=== PATIENT | female | born 1955 | race Caucasian/White ===

== ENCOUNTER 2016-10-28 09:45 | Inpatient (IN) ==
--- NOTE | 2016-10-27 21:31 | Discharge Summary ---
<Shannan Blanc Neelam - Last Filed: 10/27/16 21:28> Date of Encounter: 10/27/16 - Discharge Diagnosis (1) Arthritis of knee, right Priority: Primary Status: Acute (2) Chronic pain Priority: Secondary Status: Chronic Comments: Currently on Oxycodone 10mg q 6 hours, #120, LD 09/23/16. Will continue this medication with breakthrough pain medication. Qualifiers: Chronic pain type: other chronic pain Qualified Code(s): G89.29 - Other chronic pain (3) Lumbar stenosis Priority: Secondary Status: Chronic (4) Fibromyalgia Priority: Secondary Status: Chronic (5) Morbid obesity Priority: Secondary Status: Chronic Qualifiers: Obesity type: unspecified obesity type Qualified Code(s): E66.01 - Morbid ( severe) obesity due to excess calories - Discharge Medications Home Medications: Levothyroxine [Synthroid] 50 mcg PO DAILY 12/28/14 [History] Milk Thistle 1,000 mg PO DAILY 12/28/14 [History] Gabapentin [Neurontin] 600 mg PO TID 04/22/16 [History] Lisinopril/Hydrochlorothiazide [Zestoretic 20-25 mg Tablet] 1 each PO DAILY [History] Aspirin Enteric Coated [Aspirin EC] 325 mg PO DAILY #21 tablet. 10/27/16 [Rx] OxyCODONE Immed Rel [Roxicodone 5 MG] 5 mg PO Q8H PRN #21 tablet 10/27/16 [Rx] Liraglutide [Victoza 2-Arsenio] 1.8 mg SQ DAILY #0 10/28/16 [History] Oxycodone HCl 10 mg PO Q6HR PRN 10/28/16 [History] Allergies/Adverse Reactions: Allergies pregabalin [From Lyrica] Adverse Reaction (Verified 10/29/16 11:19) Nausea Primary care physician: Boris Cheney - Patient Status Disposition: Transfer Inpatient Rehab Fac Condition: Good - Discharge Instructions Follow Up With: Boris Cheney [Primary Care Provider] - - Hospital Course Hospital course: Ms. Campos is a 61 year old female - Time Spent with Patient Total time spent providing and/or coordinating discharge services: <Kasi Avila - Last Filed: 10/30/16 12:49> Date of Encounter: 10/30/16 Time of Encounter: 12:48 - Discharge Diagnosis (1) Lumbar stenosis Priority: Secondary Status: Chronic (2) Fibromyalgia Priority: Secondary Status: Chronic (3) Morbid obesity with BMI of 45.0-49.9, adult Priority: Secondary Status: Chronic (4) History of total knee replacement Priority: Secondary Status: Chronic Qualifiers: Laterality: left Qualified Code(s): Z96.652 - Presence of left artificial knee joint (5) Arthritis of knee, right Priority: Primary Status: Acute (6) Chronic pain Priority: Secondary Status: Chronic Qualifiers: Chronic pain type: other chronic pain Qualified Code(s): G89.29 - Other chronic pain Primary care physician: Boris Cheney - Patient Status Functional capacity at discharge: uses cane/walker Overall status at discharge: patient is progressing back to baseline - Hospital Course Hospital course: Ms. Campos is a 61 year old female The patient had an uneventful postoperative course. They received antibiotics and physical therapy and were discharged in stable condition. There will follow -up in the office in 2 weeks. Aspirin DVT prophylaxis - Time Spent with Patient Total time spent providing and/or coordinating discharge services:
[2016-10-28] MEDS ORDERED: CeFAZolin Pre 2,000 MG/100 ML 2,000 MG/100 ML BAG IVPB ONE (10:34)
--- NOTE | 2016-10-28 10:38 | History & Physical Report ---
Date of Encounter: 10/28/16 Time of Encounter: 10:38 24 Hour HP Update - Instructions Instructions: If the History and Physical is less than 30 days old and was completed prior to A.M. admission and or procedure and has NOT been updated on calendar day of procedure please complete this update prior to performing procedure. - Update Patient reports changes in Medical Condition: No Changes in examination, assessment, or condition: No Changes in Medication: No Preop tests/diagnostics Reviewed: Yes Surgery Remains Indicated: Yes Consent for Planned Operative Procedure(s) Verified: Yes - Pre-Operative Checklist Preoperative Checklist Indicated: No Prophylactic Antibiotic Ordered: Yes Is VTE Prophylaxis Indicated?: Yes
[2016-10-28] MEDS ORDERED: diazePAM 5 MG TABLET PO ONE (10:43)
[2016-10-28] MEDS ORDERED: Famotidine 20 MG/2 ML VIAL IVP ONE (10:43)
[2016-10-28] MEDS ORDERED: Gabapentin 300 MG CAPSULE PO ONE (10:43)
[2016-10-28] MEDS ORDERED: Ringers Solution, Lactated 1,000 ML IVC SCH (10:45)
[2016-10-28] MEDS ORDERED: Lidocaine -MPF 1% 2 ML VIAL ID ONE (11:00)
--- NOTE | 2016-10-28 11:16 | Anesthesia Evaluation PreOp ---
Date of Encounter: 10/28/16 Time of Encounter: 11:15 - Past History Planned Operation: Rt TKA Revision Cardiac History: HTN, Hyperlipidemia Pulmonary History: Denies Any Significant HX ADVERTISING ASSISTANT MANAGER History: Other (Fibromyalgia) Other Medical History: Thyroid, Other (Severe Anxiety, Morbid Obesity) Anesthesia History: Past Anesthesia (Rt TKA), Problems (Respiratory Depression) : No Alcohol Use: none Drug use: none Medications and Allergies Levothyroxine [Synthroid] 50 mcg PO DAILY 12/28/14 [History] Milk Thistle 1,000 mg PO DAILY 12/28/14 [History] Amitriptyline [Elavil] 150 mg PO HS 04/22/16 [History] Gabapentin [Neurontin] 300 mg PO TID 04/22/16 [History] Gabapentin [Neurontin] 600 mg PO TID 04/22/16 [History] Lisinopril/Hydrochlorothiazide [Zestoretic 20-25 mg Tablet] 1 each PO DAILY [History] OxyCODONE/APAP 10/325 [Percocet 10/325 MG] 1 each PO Q6HR PRN 04/22/16 [History] Pravastatin Sodium [Pravachol] 20 mg PO DAILY 04/22/16 [History] Tizanidine HCl 4 mg PO TID 04/22/16 [History] Aspirin Enteric Coated [Aspirin EC] 325 mg PO DAILY #21 tablet. 10/27/16 [Rx] OxyCODONE Immed Rel [Roxicodone 5 MG] 5 mg PO Q8H PRN #21 tablet 10/27/16 [Rx] Allergies pregabalin [From Lyrica] Adverse Reaction (Verified 04/22/16 13:02) Nausea - Meds/Allergy Pre-op Review Medications Reviewed: Yes Allergies Reviewed: Yes Beta Blockers on Current Med List: No Anesthesia Results - Labs Laboratory Tests 10/14/16 10/14/16 09:15 09:15 Hgb 12.8 Hct 40.1 Plt Count 289 Sodium 135 L Potassium 4.2 BUN 19 Creatinine 0.79 - Imaging EKG: report reviewed (SR) Anesthesia Exam O2 Sat Height 1.55 m Height 1.55 m Height 1.55 m Weight 115.212 kg Weight 115.212 kg Weight 115.212 kg O2 Sat by Pulse Oximetry 95 O2 Sat by Pulse Oximetry 95 Vital Signs Temp Pulse Resp BP Pulse Ox 98.0 F 69 18 164/73 95 10/28/16 10:04 10/28/16 10:04 10/28/16 10:04 10/28/16 10:04 10/28/16 10:04 Height: 5'1 Weight: 254 lbs NPO (# of Hours): MN Pain Scale: 0 - HEENT Pupil (Motor): Pupils equal, EOMI Mallampati: III Denture Type: Upper: Complete Oral Opening: Less than or equal to 3 - ADVERTISING ASSISTANT MANAGER LOC: Oriented ADVERTISING ASSISTANT MANAGER Motor: Normal RUE, Normal LUE, Normal RLE, Normal LLE, Normal Face ADVERTISING ASSISTANT MANAGER Sensory: Normal: RUE, LUE, RLE, LLE, Face - Cardiac Rhythm: Regular Murmur: None JVD: No Carotid Bruit: No - Pulmonary Breath Sounds: bilateral Clear Respiratory Effort: Symmetrical Anesthesia Assess/Plan ASA Score: 3 (MO HTN) Modified [place] Scale for Level of Consciousness: Cooperative, oriented, and tranquil Anesthetic Plan: General, Regional Monitoring Plan: Standard Monitors Recovery Plan: PACU (Discussed GA and RA, agrees to proceed)
[2016-10-28] MEDS ORDERED: ROPIVACAINE HCL/PF 0.5% 30 ML VIAL ONE (12:08)
[2016-10-28] MEDS ORDERED: Tetracaine/PF 20 MG/2 ML AMPUL ONE (12:09)
[2016-10-28] MEDS ORDERED: *HR* Midazolam HCl 5 MG/5 ML VIAL IVP ONE (12:21)
[2016-10-28] MEDS ORDERED: Ondansetron 4 MG/2 ML VIAL IVP PRN ×2 (13:15→15:56)
[2016-10-28] MEDS ORDERED: *HR* Promethazine 25 MG/ML VIAL IVP PRN (13:15)
[2016-10-28] MEDS ORDERED: *HR* Midazolam HCl 2 MG/2 ML VIAL IVP PRN (13:15)
[2016-10-28] MEDS ORDERED: *HR* Labetalol 100 MG/20 ML MDV IVP PRN (13:15)
[2016-10-28] MEDS ORDERED: *HR* HYDROmorphone (PF) 1 MG/ML SYRINGE IVP PRN (13:15)
[2016-10-28] MEDS ORDERED: *HR* Propofol 200 MG/20 ML VIAL IVP ONE (13:22)
[2016-10-28] MEDS ORDERED: *HR* FentaNYL (PF) 100 MCG/2 ML VIAL ONE (13:22)
[2016-10-28] MEDS ORDERED: Lidocaine -MPF 4% 5 ML AMPUL ONE ×2 (13:22→14:49)
[2016-10-28] MEDS ORDERED: Lidocaine -MPF 2% 2 ML VIAL ONE (13:22)
[2016-10-28] MEDS ORDERED: *HR* Midazolam HCl 2 MG/2 ML VIAL ONE ×2 (13:22)
[2016-10-28] MEDS ORDERED: *HR* Succinylcholine 200 MG/10 ML VIAL IVP ONE (13:22)
[2016-10-28] MEDS ORDERED: Dexamethasone 4 MG/ML VIAL ONE (13:23)
[2016-10-28] MEDS ORDERED: Ondansetron 4 MG/2 ML VIAL ONE (13:23)
[2016-10-28] MEDS ORDERED: *HR* Labetalol 20 MG/4 ML SYRINGE IVP ONE (13:24)
--- NOTE | 2016-10-28 13:24 | Anesthesia Procedures ---
Date of Encounter: 10/28/16 Time of Encounter: 11:15 Procedures: Anesthesia - Nerve Block Procedure Date: 10/28/16 Time: 12:30 Pre-op Diagnosis: Rt Knee OA Surgical Procedure: RT TKA Checklist: Correct Patient Identifier Correct side: Right Blood Thinner: No Monitor Applied: EKG, BP, Pulse Oximetry Supplemental Oxygen via Nasal Cannula (L/min): 2 Sedation: Versed (mg): 9 Sedation: Fentanyl (mcg): 100 Indication: Post Op Analgesia Pre-op Neuro Deficits: No Block Type: Femoral Catheter placed: No Depth at skin (cm): 3 Sterile Technique: Yes Ultrasound used: Yes Anatomy identified: Yes Visual spread of Local: Yes Neuro Stimulation: Yes Nerve Stimulator Range: >0.4 - 0.6 mA Blood on Needle Aspiration: No Smooth Injection of Local: Yes Pain with Injection of Local: No Prep: Chlorhexadine Needle: 22 x 50 mm Stimuplex Local: Tetracaine (20), Ropivacaine (0.5%) Volume (cc): 30 Number of Attempts: 1 Complications: None/effective block Vitals: O2 Sat Height 1.55 m Height 1.55 m Height 1.55 m Weight 115.212 kg Weight 115.212 kg Weight 115.212 kg O2 Sat by Pulse Oximetry 95 O2 Sat by Pulse Oximetry 95 Vital Signs Temp Pulse Resp BP Pulse Ox 98.0 F 69 18 164/73 95 10/28/16 10:04 10/28/16 10:04 10/28/16 10:04 10/28/16 10:04 10/28/16 10:04
--- NOTE | 2016-10-28 13:49 | Orthopedic Operative Note ---
Date of procedure: 10/28/16 Pre-op diagnosis: Right knee arthritis Post-op diagnosis: same Procedure: Procedure: Right Total knee replacement Estimated blood loss: 200 cc Hardware: Metal and polyethylene replacement. Biomet titanium: Femur 60 , tibia 63, 10 PS Elisha, 34 patella Exam Under anesthesia: Loss full extension 10 degrees full flexion no instability Procedural Notes: Grade 4 arthritic changes patellofemoral joint medial compartment Operative procedure: The patient was brought to the operating room and placed on the operating room table. After general anesthesia was administered the operative knee was examined. Findings were noted in the exam under anesthesia. The operative extremity was prepped and draped in sterile surgical fashion. The patient received IV antibiotics prior to skin incision. A standard midline incision was made centered over the patella. The incision was made through the skin and subcutaneous tissue. A medial parapatellar tendon approach was performed. Care was taken to preserve tissue along the medial aspect of the patella. And to protect the patella tendon. The deep MCL was released off the medial tibia. The infra patella fat pad was excised. Knee was brought into flexion. Patient noted to have grade 43 changes patellofemoral joint and medial compartment. The entry hole was made for the intramedullary femoral guide. The guide was seated in 6 degrees of valgus. Anterior cut was made followed by the distal cut. The ACL the PCL the medial and the lateral menisci were excised. The tibia was subluxed forward. The entry hole was made for the intramedullary tibial guide. Guide was seated to resect 2 mm off the more abnormal side. The knee was brought into flexion the distal femur was sized to a 60. The femoral guide was seated, the anterior cut was made followed by the posterior condylar cut, followed by the chamfer cuts. The finishing guide was seated the box cut was made and the lug holes were drilled. The tibia was sized to a 63, the tibial tray was seated and prepared with the large drill followed by the fin cutter. Trial reduction revealed full extension no varus valgus instability with the appropriate 10 PS Elisha. The patella was everted and cut was made at the level of the insertion of the quadriceps and patella tendon. The patella was sized to a 34 the guide was seated and the lug holes are drilled. Trial reduction revealed excellent patella tracking. All trial components were removed all bony surfaces were irrigated. The tibia was cemented first followed by the femur. The 10 PS Leisha was seated and the knee was brought into full extension. The patella was cemented and held in place with the patellar holding clamp. After the cement had hardened, the knee sat for 2 minutes with a Betadine saline solution. The knee was then irrigated out with 2 L of pulse irrigation. The extensor mechanism was closed with #2 FiberWire suture and #2 PDS suture. The subcutaneous tissue was then irrigated and closed deep with #1 PDS suture superficially with 0 PDS suture and skin was closed with Dermabond. The patient was then placed in a sterile dressing and a postoperative brace extubated and transferred to recovery room in stable condition. Anesthesia: LJ Surgeon: Kasi Avila Veterinary Technology Instructor: Shannan Blanc Condition: stable Disposition: PACU
[2016-10-28] MEDS ORDERED: *HR* HYDROmorphone 2 MG/ML SYRINGE ONE (14:38)
[2016-10-28] MEDS ORDERED: Ketorolac 30 MG/ML VIAL IVP ONE (15:15)
--- NOTE | 2016-10-28 15:29 | Anesthesia Evaluation Post Op ---
Date of Encounter: 10/28/16 Time of Encounter: 15:27 - Vital Signs Vital Signs: Vital Signs/O2 Sat/Glucose, Most Recent Temp Pulse Resp BP Pulse Ox 97.1 F L 67 16 155/84 98 10/28/16 14:50 10/28/16 14:50 10/28/16 14:50 10/28/16 14:50 10/28/16 14:50 - Lungs Lungs: Clear Ascult./Percussion - Airway Airway: Non-obstructed - Cardiovascular Regular Rate, Baseline Rhythm - Mental Status Mental Status: Alert & Oriented, Answers Appropriately - Pain Pain Scale: 10 (As per baseline with known H/O chronic pain use) Pain Scale used: Numeric (1 - 10) - Nausea Vomiting Nausea Vomiting: Not Present - Hydration Hydration: NPO Notes: 10/28/16 15:28 AAOx3, VSS with baseline pain assessment as per pre-op baseline, Ofrimev and Toradol given per PACU staff - Discharge PostOp Status: Transfer Patient to floor
[2016-10-28 15:31] LABS: Hematocrit 37.6 % (35.3-44.9); Hemoglobin 11.9 g/dL (11.5-15.4)
--- NOTE | 2016-10-28 15:40 | Anesthesia Procedures ---
Date of Encounter: 10/28/16 Time of Encounter: 14:55 Procedures: Anesthesia - Nerve Block Procedure Date: 10/28/16 Time: 14:55 Allergies/Adv Reactions: pregabalin, metal Pre-op Diagnosis: R knee arthritis Surgical Procedure: R TKA Checklist: Correct Patient Identifier, Correct procedure, History checked Correct side: Right Blood Thinner: No Monitor Applied: EKG, BP, Pulse Oximetry Supplemental Oxygen via Nasal Cannula (L/min): 8 Indication: Post Op Analgesia (rescue block) Pre-op Neuro Deficits: No Block Type: Other (adductor canal) Catheter placed: No Sterile Technique: Yes Ultrasound used: Yes Anatomy identified: Yes Visual spread of Local: Yes Neuro Stimulation: No Blood on Needle Aspiration: No Smooth Injection of Local: Yes Pain with Injection of Local: No Prep: Chlorhexadine Needle: 22 x 50 mm Stimuplex Local: Other (10mL 0.5% ropivicaine; 5mL of 4% lidocaine) Number of Attempts: 1 Complications: None/effective block Vitals: please see [facility] LONG TERM ACUTE CARE REGISTERED NURSE's documentation
[2016-10-28] MEDS ORDERED: Sennosides 8.6 MG TABLET PO PRN (15:56)
[2016-10-28] MEDS ORDERED: Temazepam 15 MG CAPSULE PO PRN (15:56)
[2016-10-28] MEDS ORDERED: Gabapentin 300 MG CAPSULE PO SCH ×2 (15:56)
[2016-10-28] MEDS ORDERED: Naloxone 0.4 MG/ML INJ IVP PRN (15:56)
[2016-10-28] MEDS ORDERED: MOM Conc 10 ML UD.LIQ PO PRN (15:56)
[2016-10-28] MEDS ORDERED: *HR* OxyCODONE Immed Rel 5 MG TABLET PO PRN (15:56)
[2016-10-28] MEDS: *HR* HYDROmorphone (PF) 1 MG/ML SYRINGE IVP PRN ×3 (16:30→23:37)
[2016-10-28] MEDS: ceFAZolin 2,000 MG in D5% in Water 100 ML IVPB SCH ×2 (17:45→23:55)
[2016-10-28] MEDS: Gabapentin 300 MG CAPSULE PO SCH ×2 (17:48→23:38)
[2016-10-28] MEDS: *HR* Enoxaparin 30 MG/0.3 ML SYRINGE SQ SCH (17:48)
[2016-10-28] MEDS ORDERED: *HR* Enoxaparin 30 MG/0.3 ML SYRINGE SQ SCH (18:00)
[2016-10-29] MEDS: Ringers Solution, Lactated 1,000 ML IVC SCH ×2 (02:27→10:42)
[2016-10-29] MEDS: *HR* HYDROmorphone (PF) 1 MG/ML SYRINGE IVP PRN ×8 (02:33→22:49)
[2016-10-29 05:41] LABS: Hematocrit 33.8 % (35.3-44.9); Hemoglobin 10.5 g/dL (11.5-15.4)
[2016-10-29 05:59] LABS: BUN/Creatinine Ratio 19 (6-26); Blood Urea Nitrogen 15 mg/dL (7-20); Calcium 8.4 mg/dL (8.6-10.8); Carbon Dioxide 23 mEq/L (19-29); Chloride 105 mEq/L (98-109); Glucose 164 mg/dL (70-99); Osmolality,Calculated 284 (280-300); Potassium 5.3 mEq/L (3.5-4.5); Sodium 135 mEq/L (136-145); eGFR For African Americans > 60 (> 60); eGFR For Non-African Americans > 60 (> 60)
[2016-10-29] MEDS: *HR* Enoxaparin 30 MG/0.3 ML SYRINGE SQ SCH ×2 (06:12→17:52)
--- NOTE | 2016-10-29 06:23 | Orthopedics Progress Note ---
Date of Encounter: 10/29/16 Time of Encounter: 06:22 - Assessment and Plan (1) Lumbar stenosis Current Visit: No Status: Chronic (2) Fibromyalgia Current Visit: No Status: Chronic (3) Morbid obesity with BMI of 45.0-49.9, adult Current Visit: No Status: Chronic (4) History of total knee replacement Current Visit: No Status: Chronic Qualifiers: Laterality: left Qualified Code(s): Z96.652 - Presence of left artificial knee joint (5) Arthritis of knee, right Current Visit: Yes Status: Acute (6) Chronic pain Current Visit: Yes Status: Chronic Qualifiers: Chronic pain type: other chronic pain Qualified Code(s): G89.29 - Other chronic pain Subjective Interval history: Patient was seen this morning doing well without complaints. Afebrile vital signs stable. Operative extremity: Neurovascularly intact Dressing clean dry and intact Calves nontender Assessment and plan: Continue with postoperative care Hematocrit 33 Objective Vital signs: Vital Signs Temp Pulse Resp BP Pulse Ox 10/29/16 03:14 98.2 F 92 16 129/70 96 10/28/16 23:10 98.3 F 88 20 140/88 97 10/28/16 19:03 98.0 F 83 18 140/74 98 10/28/16 19:00 98.0 F 82 18 161/71 95 10/28/16 18:04 98.1 F 84 18 136/57 95 10/28/16 17:05 98.1 F 86 19 145/61 95 10/28/16 16:00 97.6 F 70 16 159/80 100 10/28/16 15:30 97.8 F 80 16 131/92 97 10/28/16 15:20 97.9 F 70 16 148/80 97 10/28/16 15:10 75 16 130/94 98 10/28/16 15:00 77 16 157/102 98 10/28/16 14:50 97.1 F L 67 16 155/84 98 10/28/16 12:04 95 166/69 100 10/28/16 10:21 98.0 F 69 18 164/73 95 10/28/16 10:04 98.0 F 69 18 164/73 95 Intake and Output 10/28/16 10/28/16 10/29/16 15:59 23:59 07:59 Intake Total 820 / 820 125 / 125 Output Total 200 / 200 0 / 0 Balance -200 / -200 820 / 820 125 / 125 Intake: IV Fluids 100 / 100 Ancef 2,000 MG In 100 / 100 Dextrose 5% 100 ML @ 200 mls/hr IVPB Q8HR [facility] Rx#: [id number] Oral 720 / 720 125 / 125 Output: Urine 0 / 0 Estimated Blood Loss 200 / 200 Other: Stool Size Small Stool Consistency loose # Voids 1 1 # Bowel Movements 1 Weight 115.212 kg 115.2 kg Patient Weight 10/29/16 23:59 Weight 115.2 kg - Labs CBC & BMP: 10/29/16 05:02 10/29/16 05:02 Labs: Abnormal lab results Hgb 10.5 g/dL (11.5-15.4) L 10/29/16 05:02 Hct 33.8 % (35.3-44.9) L 10/29/16 05:02 Sodium 135 mEq/L (136-145) L 10/29/16 05:02 Potassium 5.3 mEq/L (3.5-4.5) H 10/29/16 05:02 Glucose 164 mg/dL (70-99) H 10/29/16 05:02 Calcium 8.4 mg/dL (8.6-10.8) L 10/29/16 05:02 - VTE Documentation of Mechanical Device: Venous foot pump, device Consult Discharge Plan - Plan Referrals: Boris Cheney [Primary Care Provider] -
[2016-10-29] MEDS: Gabapentin 300 MG CAPSULE PO SCH ×3 (09:31→19:54)
[2016-10-29] MEDS: VICTOZA SQ SCH (10:25)
[2016-10-29] MEDS: PAK SQ SCH (10:25)
[2016-10-29] MEDS: *HR* OxyCODONE Immed Rel 5 MG TABLET PO PRN ×3 (10:40→21:00)
[2016-10-29] MEDS ORDERED: Acetaminophen 325 MG TABLET PO PRN (16:12)
[2016-10-30] MEDS: *HR* HYDROmorphone (PF) 1 MG/ML SYRINGE IVP PRN ×3 (04:25→11:20)
[2016-10-30] MEDS: *HR* Enoxaparin 30 MG/0.3 ML SYRINGE SQ SCH (05:38)
[2016-10-30] MEDS: *HR* OxyCODONE Immed Rel 5 MG TABLET PO PRN ×3 (05:39→14:26)
[2016-10-30 06:18] LABS: Hematocrit 31.6 % (35.3-44.9); Hemoglobin 9.9 g/dL (11.5-15.4)
[2016-10-30 06:57] LABS: BUN/Creatinine Ratio 26 (6-26); Blood Urea Nitrogen 23 mg/dL (7-20); Calcium 8.5 mg/dL (8.6-10.8); Carbon Dioxide 25 mEq/L (19-29); Chloride 102 mEq/L (98-109); Glucose 184 mg/dL (70-99); Osmolality,Calculated 288 (280-300); Sodium 135 mEq/L (136-145); eGFR For African Americans > 60 (> 60); eGFR For Non-African Americans > 60 (> 60)
[2016-10-30 06:58] LABS: Potassium 4.1 mEq/L (3.5-4.5)
[2016-10-30] MEDS: Gabapentin 300 MG CAPSULE PO SCH ×2 (07:29→14:26)
[2016-10-30] MEDS: PAK SQ SCH (07:32)
[2016-10-30] MEDS: VICTOZA SQ SCH (07:32)
--- NOTE | 2016-10-30 08:12 | Orthopedics Progress Note ---
Date of Encounter: 10/30/16 Time of Encounter: 08:12 - Assessment and Plan (1) Lumbar stenosis Current Visit: No Status: Chronic (2) Fibromyalgia Current Visit: No Status: Chronic (3) Morbid obesity with BMI of 45.0-49.9, adult Current Visit: No Status: Chronic (4) History of total knee replacement Current Visit: No Status: Chronic Qualifiers: Laterality: left Qualified Code(s): Z96.652 - Presence of left artificial knee joint (5) Arthritis of knee, right Current Visit: Yes Status: Acute (6) Chronic pain Current Visit: Yes Status: Chronic Qualifiers: Chronic pain type: other chronic pain Qualified Code(s): G89.29 - Other chronic pain Subjective Interval history: Patient was seen this morning doing well without complaints. Afebrile vital signs stable. Operative extremity: Neurovascularly intact Dressing clean dry and intact Calves nontender Assessment and plan: Continue with postoperative care Hematocrit 31 Objective Vital signs: Vital Signs Temp Pulse Resp BP Pulse Ox 10/30/16 06:41 99.1 F 85 16 147/77 95 10/30/16 04:26 98.4 F 87 21 168/80 96 10/29/16 23:21 98.3 F 61 21 139/55 96 10/29/16 19:30 98 F 79 17 96/53 97 10/29/16 17:51 121/61 10/29/16 17:17 95/70 10/29/16 15:47 98.6 F 94 18 93/64 98 10/29/16 12:42 92 18 131/89 98 10/29/16 11:00 98.4 F 92 18 131/89 98 Intake and Output 10/29/16 10/30/16 10/30/16 23:59 07:59 15:59 Other: # Voids 1 1 - Labs CBC & BMP: 10/30/16 05:52 10/30/16 05:52 Labs: Abnormal lab results Hgb 9.9 g/dL (11.5-15.4) L 10/30/16 05:52 Hct 31.6 % (35.3-44.9) L 10/30/16 05:52 Sodium 135 mEq/L (136-145) L 10/30/16 05:52 BUN 23 mg/dL (7-20) H 10/30/16 05:52 Glucose 184 mg/dL (70-99) H 10/30/16 05:52 Calcium 8.5 mg/dL (8.6-10.8) L 10/30/16 05:52 - VTE Documentation of Mechanical Device: Venous foot pump, device Consult Discharge Plan - Plan Referrals: Boris Cheney [Primary Care Provider] -
[2016-10-30 10:53] VITALS: BP 145/67
== END 2016-10-30 16:18 | DRG 470 ==
LOC: SAMDAY 09:45 → 3NENU 16:01
PROVIDERS: ADMIT Orthopaedic Surgery; ATTEND Orthopaedic Surgery